=== PATIENT | male | born 1995 | race Caucasian/White ===

== ENCOUNTER 2018-01-15 17:11 | Emergency (ER) | payer SELFPAY ==
[~2018-01-15] VITALS: Ht 180.3 cm; Wt 65.8 kg
[2018-01-15 17:39] VITALS: BP 112/72
[2018-01-15 18:14] LABS: Mean Corpuscular Hemoglobin 30.7 pg (28.0-32.0)
[2018-01-15 18:16] LABS: Basophils # (auto) 0 uL; Basophils % (auto) 0.2 % (0.0-2.0); Eosinophils # (auto) 0.1 uL; Eosinophils % (auto) 0.3 % (0.0-7.0); Hematocrit 54.5 % (41.0-53.0); Hemoglobin 18.2 g/dL (13.5-17.5); Lymphocytes # (auto) 2.2 uL; Lymphocytes % (auto) 12.5 % (10.0-50.0); Mean Corpuscular Hgb Conc. 33.5 g/dL (32.0-36.0); Mean Corpuscular Volume 91.8 fL (80.0-100.0); Monocytes # (auto) 1.4 uL; Monocytes % (auto) 8.2 % (0.0-12.0); Neutrophils # (auto) 13.7 uL; Neutrophils % (auto) 78.8 % (37.0-80.0); Platelet Count (auto) 369 10^3/uL (140-450); Red Blood Cells 5.94 10^6/uL (4.5-5.90); Red Cell Distribution Width 13.6 % (11.8-14.3); White Blood Cell 17.4 10^3/uL (4.4-10.8)
[2018-01-15 18:33] LABS: Albumin 4.8 g/dL (3.4-5.0); BUN/Creatinine Ratio 11.7; Calcium 9.2 mg/dL (8.5-10.1); Potassium 4.4 mmol/L (3.5-5.1)
[2018-01-15 18:45] LABS: Bilirubin, Total 0.8 mg/dL (0.2-1.0); Total Protein 9.3 g/dL (6.4-8.2)
== END 2018-01-15 22:36 | disposition left against medical advice (07) ==
LOC: ER 17:11
DX: R11.2 Nausea with vomiting, unspecified (principal); R10.9 Unspecified abdominal pain; Z53.21 Procedure and treatment not carried out due to patient leaving prior to being seen by health care provider
CPT/HCPCS: 36415; 80053; 85025